=== PATIENT | female | born 1950 | race Caucasian/White ===

== ENCOUNTER → 2018-04-06 | Outpatient (CLI) | payer OTHER ==
--- NOTE | 2018-04-07 09:36 | RADIOLOGY IMAGING REPORT ---
FACILITY: [facility] - [place], [place] PATIENT NAME: AGUSTINA ORTIZ : [id number] MR: [id number] V: [id number] EXAM DATE: [id number] ORDERING PHYSICIAN: JAYNA RODRIGUEZ TECHNOLOGIST: Rachel Armenta PROCEDURE:BILATERAL DIGITAL SCREENING MAMMOGRAM WITH CAD ASSISTED INTERPRETATION & 3D TOMOSYNTHESIS COMPARISON:Prior mammograms 04/28/15, 05/29/12, 05/11/12. INDICATIONS:SCREENING FINDINGS: A small to moderate amount of fibroglandular tissue is seen throughout the breasts. The parenchymal pattern has remained stable allowing for difference in mammographic technique & patient positioning. There is no evidence of malignant appearing mass, malignant appearing calcifications or other secondary sign of malignancy in either breast. DIAGNOSTIC CATEGORY 1--NEGATIVE. RECOMMENDATIONS: ROUTINE MAMMOGRAM AND CLINICAL EVALUATION. IMPRESSION: BIRADS 1: Negative. No significant abnormality is seen. Dictated by: Melody Garcia M.D. on 04/06/2018 at 15:35 Transcribed by: JACOB on 04/06/2018 at 15:41 Approved by: Melody Garcia M.D. on 04/07/2018 at 9:35 [facility]
== END ==
LOC: MAMO 00:59
PROVIDERS: ATTEND Nurse Practitioner Psychiatric/Mental Health
DX: Z12.31 Encounter for screening mammogram for malignant neoplasm of breast (principal)
CPT/HCPCS: 77063; 77067

== ENCOUNTER 2019-01-30 15:30 | Outpatient (RCR) | payer OTHER ==
--- NOTE | 2018-11-03 18:35 | PT INITIAL EVALUATION ---
MEDICAL DIAGNOSIS: Bilateral Knee Pain TREATMENT DIAGNOSIS: Bilateral Knee Pain, Patellofemoral Syndrome, LE weakness DATE OF ONSET: 11/03/18 SUBJECTIVE: Viviana is a 68 year old female presenting to physical therapy following acute on chronic exacerbation of B knee pain. Pt reports that her knees have been bothering her on and off for years but lately they seem to be getting worse. Pain is located medial and anteriorly on the knee with pain increasing with tasks such as going down stairs, lifting objects and pivoting. Pain currently is 1/10 and reaches 7/10 at worst. Pain occasionally goes away and is improved with ice and Aleve. Knees are generally stiff in the morning and pt also reports occasional cramping in the back of the knee. 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 ROM: LE ROM WFL Strength: LE MMT (R, L): Hip: flexion: 4+/5 B, ext: 4/5 B, add: 4+/5 B, abd: 4/5 B. Knee: Flexion: 4-/5 with pain, 4/5, Ext: 4/5 B, Ankle: DF: 5/5, PF: 4+/5 B with cramping sensation B. Palpation: Pt is tender to palpation along the medial joint line B and MCL L>R. Special Tests: All ligamentous tests (-) R ACL slight laxity, B MCL pn with tension, Apley's Grind (+) B Mobility: Pt has B knee collapse R>L with squatting B and SLS. Other Objective Findings: Lower Extremity Functional Scale (LEFS): 43/80 ASSESSMENT: Viviana presents with signs and symptoms consistent with B LE weakness and patellofemoral syndrome resulting in knee pain. Physical therapy is indicated for this patient to address the above listed deficits and improve pt function with ADL's and community ambulation. Short Term Goals In 3 weeks pt will be able to perform 5/5 quad sets with good patellar tracking and equal quad activation. In 4 weeks pt will be able to perform squats and sit<>stands with good knee form and no knee pain for functional ability to perform transfers and ADL's. In 6 weeks pt will increase LEFS score to 53/80 for improved function with ADL's. In 6 weeks pt will increase strength of the full LE to 4+/5 for improved function with ADL's. In 6 weeks pt will be able to go down 1 flight of stairs with good knee mechanics and no pain for improved function with ADL's. Patient's Goals Decrease knee pain with ADL's and stairs. PLAN: Patient to be seen for Manual Therapy/STM/MET Strengthening/condition Ice/Heat Range of Motion Ultrasound Stretching Iontophoresis Neuromuscular Re-ed Closed Chain Program Electrical Stim Posture/Body mechanics Gait Trg/Balance Trg Biofeedback Home Exercise Program Mech./Manual Traction Therapeutic Activities 2x/Week for 6 Weeks If you have any questions, comments, or concerns about this report or plan, please contact me at . Thank you, Kirti Ornelas, PT, DPT, CLT MTDD
--- NOTE | 2018-12-08 07:47 | PT PLAN OF CARE ---
Physician: FLORIN Mari Patient is being seen: 2x/Week Therapist: Kirti Ornelas, PT, DPT, CLT Medical Diagnosis: Bilateral Knee Pain Treatment Diagnosis: Bilateral Knee Pain, LE weakness Date of Onset: 11/03/18 Date of Initial Evaluation: 11/03/18 Date patient was last seen: 12/07/18 Number of treatments: 11 Number of cancellations/No shows: 0 INTERVENTIONS: Manual Therapy/STM/MET Strengthening/condition Ice/Heat Range of Motion Ultrasound Stretching Iontophoresis Neuromuscular Re-ed Closed Chain Program Electrical Stim Posture/Body mechanics Gait Trg/Balance Trg Biofeedback Home Exercise Program Mech./Manual Traction Therapeutic Activities GOALS: In 3 weeks pt will be able to perform 5/5 quad sets with good patellar tracking and equal quad activation. MET In 4 weeks pt will be able to perform squats and sit<>stands with good knee form and no knee pain for functional ability to perform transfers and ADL's. MET In 6 weeks pt will increase LEFS score to 53/80 for improved function with ADL's. In Progress In 6 weeks pt will increase strength of the full LE to 4+/5 for improved function with ADL's. MET In 6 weeks pt will be able to go down 1 flight of stairs with good knee mechanics and no pain for improved function with ADL's. In Progress PATIENT'S GOAL: Decrease knee pain with ADL's and stairs. Status of Patient's Goals: 3/5 MET, 2/5 In Progress Patient Compliance: Fair Prognosis: Good Reasons for continuing therapy: Viviana shows good progress with improved strength and knee and hip stability. Pt remains to have occasional knee pain R>L especially with ambulation down stairs and kneeling. Pt remains to have occasional crepitus and clicking with patellar tracking with squatting motions R>L which is improved with taping but is occasionally painful. Further PT is indicated for this pt to continue with progress towards functional strength and stability with community ambulation and ADL's. ROM: LE ROM WFL Strength: LE MMT (R, L): Hip: flexion: 5/5, 4+/5, ext: 5/5, 4+/5, add: 5/5 B, abd: 4+/5 B. Knee: Flexion: 4+/5 B, Ext: 5-/5, 4+/5, Ankle: DF: 5/5, PF: 5/5 B. Special Tests: All ligamentous tests (-) R ACL slight laxity, B MCL pn with tension, Apley's Grind (+) B Mobility: Pt has B knee collapse R>L with eccentric SLS only. Outcome Measure: Lower Extremity Functional Scale (LEFS): 51/80 If you have questions or concerns, please feel free to contact me at [phone]. Thank you, Kirti Ornelas, PT, DPT, CLT MTDD
--- NOTE | 2019-01-19 16:52 | PT PLAN OF CARE ---
Physician: FLORIN Mari Patient is being seen: 2x/Week Therapist: Kirti Ornelas, PT, DPT, CLT Medical Diagnosis: Bilateral Knee Pain Treatment Diagnosis: Bilateral Knee Pain, LE weakness Date of Onset: 11/03/18 Date of Initial Evaluation: 11/03/18 Date patient was last seen: 01/19/19 Number of treatments: 20 Number of cancellations/No shows: 0 INTERVENTIONS: Manual Therapy/STM/MET Strengthening/condition Ice/Heat Range of Motion Ultrasound Stretching Iontophoresis Neuromuscular Re-ed Closed Chain Program Electrical Stim Posture/Body mechanics Gait Trg/Balance Trg Biofeedback Home Exercise Program Mech./Manual Traction Therapeutic Activities GOALS: In 3 weeks pt will be able to perform 5/5 quad sets with good patellar tracking and equal quad activation. MET In 4 weeks pt will be able to perform squats and sit<>stands with good knee form and no knee pain for functional ability to perform transfers and ADL's. MET In 6 weeks pt will increase LEFS score to 53/80 for improved function with ADL's. MET In 6 weeks pt will increase strength of the full LE to 4+/5 for improved function with ADL's. MET In 6 weeks pt will be able to go down 1 flight of stairs with good knee mechanics and no pain for improved function with ADL's. In Progress PATIENT'S GOAL: Decrease knee pain with ADL's and stairs. Status of Patient's Goals: 4/5 MET, 1/5 In Progress Patient Compliance: Fair Prognosis: Good Reasons for continuing therapy: Viviana shows improved strength and ROM in the R knee with decreased pain overall. Lingering deficits remain in hip flexion strength as well as pain with squatting associated with poor mechanics. Medial quad shows improved activation though toned is less than the lateral quad. However, patellar alignment is now of good quality without lateral tracking and compression. Further PT to continue with development of good squatting mechanics for improved function as well as improve lingering deficits in strength for function with ADL's and recreational activities. ROM: LE ROM WFL Strength: LE MMT (R, L): Hip: flexion: 4+/5, 5/5, ext: 5/5 B, add: 5/5 B, abd: 5/5 B. Knee: Flexion: 5/5 B, Ext: 5/5 B, Ankle: DF/PF: 5/5 B. Outcome Measure: Lower Extremity Functional Scale (LEFS): 53/80 If you have questions or concerns, please feel free to contact me at [phone]. Thank you, Kirti Ornelas PT, DPT, CLT Referring Provider Signature: Date: MTDD
== END 2019-02-01 ==
LOC: PT 15:30
PROVIDERS: ATTEND Nurse Practitioner Psychiatric/Mental Health
DX: M25.561 Pain in right knee (principal); M25.562 Pain in left knee; M62.81 Muscle weakness (generalized)
CPT/HCPCS: 97162

== ENCOUNTER 2019-02-15 17:00 | Outpatient (RCR) | payer OTHER ==
--- NOTE | 2019-02-07 10:01 | PT PLAN OF CARE ---
Physician: FLORIN Mari Patient is being seen: 2-3x/Week Therapist: Kirti Ornelas, PT, DPT, CLT Medical Diagnosis: Bilateral Knee Pain Treatment Diagnosis: Bilateral Knee Pain, LE weakness Date of Onset: 11/03/18 Date of Initial Evaluation: 11/03/18 Date patient was last seen: 02/06/19 Number of treatments: 24 Number of cancellations/No shows: 1 INTERVENTIONS: Manual Therapy/STM/MET Strengthening/condition Ice/Heat Range of Motion Ultrasound Stretching Iontophoresis Neuromuscular Re-ed Closed Chain Program Electrical Stim Posture/Body mechanics Gait Trg/Balance Trg Biofeedback Home Exercise Program Mech./Manual Traction Therapeutic Activities GOALS: In 3 weeks pt will be able to perform 5/5 quad sets with good patellar tracking and equal quad activation. MET In 4 weeks pt will be able to perform squats and sit<>stands with good knee form and no knee pain for functional ability to perform transfers and ADL's. In 6 weeks pt will increase LEFS score to 53/80 for improved function with ADL's. MET In 6 weeks pt will increase strength of the full LE to 4+/5 for improved function with ADL's. MET In 6 weeks pt will be able to go down 1 flight of stairs with good knee mechanics and no pain for improved function with ADL's. PATIENT'S GOAL: Decrease knee pain with ADL's and stairs. Status of Patient's Goals: 3/5 Goals MET, 2/5 In progress Patient Compliance: Good Prognosis: Good Reasons for continuing therapy: Despite significant gains in strength, pt remains to require cuing for LE alignment 25% of the time with frequent R LE lateral rotation resulting in medial knee collapse. Additionally pain levels remain low but come on occasionally with compressive activities such as kneeling and deep squatting. Pt is to continue with PT to further improve neuromuscular activation for patellar tracking. However, it is my impression that this patient might benefit from steroid injection to decreased inflammation likely related to arthritis in the knee. Further PT to monitor progress with pain as well as improve functional mobility. ROM: LE ROM WFL Strength: LE MMT (R, L): Hip: flexion: 5-/5 R, 5/5, ext: 5/5 B, add: 5/5 B, abd: 5/5 B. Knee: 5/5 B, Ankle: DF: 5/5 B, PF: 5/5 B. Mobility: Pt has B knee collapse R with squatting B and SLS. Outcome Measures: Lower Extremity Functional Scale (LEFS): 53/80 If you have any questions or concerns, please feel free to contact me at [phone]. Thank you, Kirti Ornelas, PT, DPT, CLT Referring Provider Signature: Date: MTDD
--- NOTE | 2019-02-16 09:47 | PT PLAN OF CARE ---
Physician: FLORIN Mari Patient is being seen: 2x/Week Therapist: Kirti Ornelas, PT, DPT, CLT Medical Diagnosis: Bilateral Knee Pain Treatment Diagnosis: Bilateral Knee Pain, LE weakness Date of Onset: 11/03/18 Date of Initial Evaluation: 11/03/18 Date patient was last seen: 02/15/19 Number of treatments: 27 Number of cancellations/No shows: 1 INTERVENTIONS: Manual Therapy/STM/MET Strengthening/condition Ice/Heat Range of Motion Ultrasound Stretching Iontophoresis Neuromuscular Re-ed Closed Chain Program Electrical Stim Posture/Body mechanics Gait Trg/Balance Trg Biofeedback Home Exercise Program Mech./Manual Traction Therapeutic Activities GOALS: In 3 weeks pt will be able to perform 5/5 quad sets with good patellar tracking and equal quad activation. MET In 4 weeks pt will be able to perform squats and sit<>stands with good knee form and no knee pain for functional ability to perform transfers and ADL's. MET In 6 weeks pt will increase LEFS score to 53/80 for improved function with ADL's. MET In 6 weeks pt will increase strength of the full LE to 4+/5 for improved function with ADL's. MET In 6 weeks pt will be able to go down 1 flight of stairs with good knee mechanics and no pain for improved function with ADL's. MET PATIENT'S GOAL: Decrease knee pain with ADL's and stairs. Status of Patient's Goals: 5/5 Goals MET Patient Compliance: Good Prognosis: Good Reasons for discharge from therapy: Viviana is to discharge from physical therapy at this time secondary to completion of 5/5 functional goals. Pt shows significant gains in strength with improved LE alignment with transfers and squatting. Occasional pain remains present in patellar compression likely from arthritis accumulation which will be managed with continued activity and strengthening. Pt shows improved function with ADL's and is able to perform gardening and walking recreational activities without onset of knee pain with the occasional modification. Upon discharge pt is to continue with HEP to maintain gains in movement and strength. ROM: LE ROM WFL Strength: LE MMT (R, L): Hip: flexion: 5/5 R, 5/5, ext: 5/5 B, add: 5/5 B, abd: 5/5 B. Knee: 5/5 B, Ankle: DF: 5/5 B, PF: 5/5 B. Outcome Measures: Lower Extremity Functional Scale (LEFS): 56/80 If you have any questions or concerns, please feel free to contact me at [phone]. Thank you, Kirti Ornelas, PT, DPT, CLT [place]
== END 2019-02-15 18:00 | disposition home or self-care (01) ==
LOC: PT 17:00
PROVIDERS: ATTEND Nurse Practitioner Psychiatric/Mental Health
DX: M25.561 Pain in right knee (principal); M25.562 Pain in left knee; M62.81 Muscle weakness (generalized)